=== PATIENT | male | born 1955 | race Caucasian/White ===

== ENCOUNTER 2017-11-02 01:21 | Emergency (ER) | payer SELFPAY ==
[~2017-11-02] VITALS: Ht 175.3 cm; Wt 102.1 kg
[2017-11-02 01:26] VITALS: BP_SYST 144
[2017-11-02] MEDS ORDERED: DIPH-TET-PERTUS Vaccine 0.5 ML VIAL (ADACEL) I.M. ONE (01:45)
[2017-11-02 01:48] VITALS: BP_SYST 144
== END 2017-11-02 01:48 | disposition home or self-care (01) ==
LOC: SED 01:21
DX: S61.432A Puncture wound without foreign body of left hand, initial encounter (principal); R03.0 Elevated blood-pressure reading, without diagnosis of hypertension; Z88.5 Allergy status to narcotic agent; W54.0XXA Bitten by dog, initial encounter; Y93.89 Activity, other specified; Y92.89 Other specified places as the place of occurrence of the external cause; Y99.8 Other external cause status
CPT/HCPCS: 90715; 99283

== ENCOUNTER 2020-02-15 18:14 | Emergency (ER) | payer OTHER ==
[~2020-02-15] VITALS: Ht 175.3 cm; Wt 113.4 kg
[2020-02-15 18:25] VITALS: BP_SYST 138
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
--- NOTE | 2020-02-15 18:54 | NUR ---
Patient to ER bed 2 to gown for evaluation. Side rails up. Report given to YANNA.
--- NOTE | 2020-02-15 18:58 | NUR ---
DR MOYER AT BEDSIDE
--- NOTE | 2020-02-15 19:42 | NUR ---
RESTING EASY, NO DISTRESS, CALM, ALERT, CLEAR MENTATION AND SPEECH
--- NOTE | 2020-02-15 20:20 | NUR ---
Report received from ROOSEVELT Johnson for continuation of care.
[2020-02-15] MEDS ORDERED: MORPHINE 4 MG/ML INJ. SYRINGE IM ONE (20:45)
--- NOTE | 2020-02-15 20:50 | NUR ---
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
[2020-02-15] MEDS ORDERED: KETOROLAC TROMETHAMINE 30 MG VIAL IM ONE (23:00)
--- NOTE | 2020-02-15 23:08 | NUR ---
Crutches properly fitted for patient by Wallace. Patient given crutch walking instructions and demonstration. Is able to demonstrate adequate crutch walking technique with crutches provided. Aircast provided for patient.
[2020-02-15 23:10] VITALS: BP_SYST 138
--- NOTE | 2020-02-15 23:10 | NUR ---
Patient given written and verbal discharge instructions and verbalizes understanding. ER MD discussed with patient the results and treatment provided. Patient in stable condition. ID arm band removed. Rx of ibuprofen and norco given. Patient educated on pain management and to follow up with PMD. Pain Scale 5/10. Opportunity for questions provided and answered. Medication side effect fact sheet provided.
== END 2020-02-15 23:10 | disposition home or self-care (01) ==
LOC: SED 18:14
DX: S13.4XXA Sprain of ligaments of cervical spine, initial encounter (principal); Z88.5 Allergy status to narcotic agent; V49.69XA Unspecified car occupant injured in collision with other motor vehicles in traffic accident, initial encounter; Y93.89 Activity, other specified; Y92.413 State road as the place of occurrence of the external cause; Y99.8 Other external cause status
CPT/HCPCS: 70450; 72125; 73590; 73610; 96372; 99285; J1885; J2270

== ENCOUNTER 2021-02-21 19:46 | Emergency (ER) | payer OTHER ==
[~2021-02-21] VITALS: Ht 175.3 cm; Wt 113.4 kg
[2021-02-21 19:56] VITALS: BP_SYST 125
--- NOTE | 2021-02-21 20:09 | NUR ---
Patient to ER bed 4 to gown for evaluation. Side rails up. Report given to MALIK ALBERT.
--- NOTE | 2021-02-21 20:09 | NUR ---
Pt placed in hard C-collar. ER physician notified.
--- NOTE | 2021-02-21 20:15 | NUR ---
Dr. Hurley bedside for pt eval
[2021-02-21] MEDS ORDERED: KETOROLAC TROMETHAMINE 60 MG/2 ML VIAL IM ONE (20:30)
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
--- NOTE | 2021-02-21 21:06 | NUR ---
Pt back from Radiology, CT Scan well tolerated
[2021-02-21] MEDS ORDERED: NAPR-1172 PO (21:15)
--- NOTE | 2021-02-21 21:30 | NUR ---
Patient given written and verbal discharge instructions and verbalizes understanding. ER MD discussed with patient the results and treatment provided. Patient in stable condition. ID arm band removed. Rx of Naproxen given. Patient educated on pain management and to follow up with PMD. Pain Scale 0/10 Opportunity for questions provided and answered. Medication side effect fact sheet provided.
== END 2021-02-21 21:30 | disposition home or self-care (01) ==
LOC: SED 19:46
DX: S13.9XXA Sprain of joints and ligaments of unspecified parts of neck, initial encounter (principal); S33.5XXA Sprain of ligaments of lumbar spine, initial encounter; Z88.5 Allergy status to narcotic agent; Z79.899 Other long term (current) drug therapy; V49.49XA Driver injured in collision with other motor vehicles in traffic accident, initial encounter; Y93.89 Activity, other specified; Y92.89 Other specified places as the place of occurrence of the external cause; Y99.8 Other external cause status
CPT/HCPCS: 72040; 72100; 96372; 99284; J1885

== ENCOUNTER 2021-08-18 18:33 | Emergency (ER) | payer SELFPAY ==
[~2021-08-18] VITALS: Ht 175.3 cm; Wt 113.4 kg
[~2021-08-18 18:33] MED LIST: NAPR-1172 PO
[2021-08-18 18:44] VITALS: BP_SYST 159
[2021-08-18] MEDS ORDERED: PENI250T2 PO (19:34)
[2021-08-18] MEDS ORDERED: HYDR-3917 PO (19:34)
[2021-08-18 19:38] VITALS: BP_SYST 132
== END 2021-08-18 19:38 | disposition home or self-care (01) ==
LOC: SED 18:33
DX: S01.512A Laceration without foreign body of oral cavity, initial encounter (principal); Z88.6 Allergy status to analgesic agent; Z79.899 Other long term (current) drug therapy; W45.8XXA Other foreign body or object entering through skin, initial encounter; Y93.89 Activity, other specified; Y92.511 Restaurant or cafe as the place of occurrence of the external cause; Y99.8 Other external cause status
CPT/HCPCS: 99283